=== PATIENT | male | born 1955 | race Caucasian/White ===

== ENCOUNTER 2017-06-26 15:22 | Emergency (ER) | payer BC ==
[~2017-06-26] VITALS: Ht 177.8 cm; Wt 143.7 kg
[~2017-06-26 15:22] MED LIST: DUTA0.5C PO; FEXO1TAB46 PO
[2017-06-26 15:32] VITALS: BP 155/92; PULSE 73; TEMP 36.5; O2SAT 95; Ht 177.8 cm; Wt 143.7 kg
--- NOTE | 2017-06-26 15:41 | EMERGENCY ROOM VISIT NOTE ---
ED Visit Note First contact with patient: 15:34 CHIEF COMPLAINT: Staple removal HPI: This patient returns to the ED today for removal of arianne that were placed 7 days ago on the patient's superior scalp. There has been no swelling, redness, or drainage from the wound. The patient feels like the laceration is healing well. REVIEW OF SYSTEMS: A complete 6 point review of systems was reviewed with the patient with pertinent positives and negatives as per history of present illness. All else were negative. PMH: Seasonal allergies SOCIAL HISTORY: Patient lives locally with family. He denies drug, alcohol, tobacco use. PHYSICAL EXAM: Vital Signs: Reviewed Nurse's notes. There is a stapled wound on the superior scalp with no signs of infection. There is no erythema, swelling, or tenderness. EMERGENCY DEPARTMENT COURSE: 3 arianne were removed from the scalp without any difficulty and there was no separation of the wound edges. I attest that I have personally reviewed the patient's current medication list. Patient was found to have normal blood pressure on screening and does not require follow-up. DIAGNOSIS: Healing laceration and staple removal Current/Historical Medications Scheduled Dutasteride (Avodart), 0.5 MG PO QAM Fexofenadine Hcl (Sirisha), 180 MG PO DAILY Allergies Coded Allergies: Penicillins (Verified Allergy, Intermediate, HIVES, 06/19/17) Sulfa Drugs (Verified Allergy, Intermediate, "SWELLING", 06/19/17) Iodinated Diagnostic Agents (Verified Allergy, Unknown, GI UPSET, 06/19/17) Vital Signs Date Time Temp Pulse Resp B/P (MAP) Pulse Ox O2 Delivery O2 Flow Rate FiO2 06/26/17 15:32 36.5 73 18 155/92 95 Room Air Departure Information Impression Primary Impression: Encounter for removal of arianne Additional Impression: Laceration of scalp Dispostion Home / Self-Care Condition GOOD Referrals Farooq Kapadia M.D. (PCP) Patient Instructions ED Stap Removal No Complication, [facility] Additional Instructions Proper wound care is essential for adequate wound healing and infection prevention. You can shower and clean the wound with soap and water. Do not scour over the wound, pat dry with a towel. Do not submerse the wound (i.e. bathe or dish wash) until the wound has fully healed. You can use an antibiotic ointment with a dressing over the wound for the next 3-4 days. After this time you may leave the wound dry and open to the air. Return to the emergency department for repeat bleeding, increased pain, or any other concerning symptoms. Problem Qualifiers Additional Impression: Laceration of scalp Encounter type: subsequent encounter Qualified Codes: S01.01XD - Laceration without foreign body of scalp, subsequent encounter
== END 2017-06-26 15:54 | disposition home or self-care (01) ==
LOC: C.EDB 15:23 → C.EDD 15:54
DX: S01.01XD Laceration without foreign body of scalp, subsequent encounter (principal); X58.XXXD Exposure to other specified factors, subsequent encounter

== ENCOUNTER → 2017-07-20 | Outpatient (CLI) | payer BC ==
--- NOTE | 2017-07-20 15:47 | DIAGNOSTIC IMAGING REPORT ---
CHEST 2 VIEWS ROUTINE HISTORY: 61 years-old Male LRTI acute lower respiratory tract infection with cough COMPARISON: None available TECHNIQUE: PA and lateral views of the chest FINDINGS: Cardiac silhouette is upper limits of normal. There is no pneumothorax, pleural effusion, focal airspace consolidation or overt pulmonary edema. Bones of the chest appear grossly intact. IMPRESSION: No acute cardiopulmonary process. The above report was generated using voice recognition software. It may contain grammatical, syntax or spelling errors. Electronically signed by: Derek Lozano M.D. 07/20/2017 3:46 PM Dictated Date/Time: 07/20/2017 3:45 PM
== END | disposition home or self-care (01) ==
LOC: C.RADBC 15:21
PROVIDERS: ATTEND Family Medicine
DX: J22 Unspecified acute lower respiratory infection (principal); R05 Cough

== ENCOUNTER 2019-10-10 12:04 | Inpatient (IN) ==
[2019-10-10 12:43] LABS: Basophils # (auto) 0.04 K/uL (0-0.2); Basophils % (auto) 0.5 %; Eosinophils # (auto) 0.14 K/uL (0-0.5); Eosinophils % (auto) 1.8 %; Hematocrit (blood only) 43.4 % (42-52); Hemoglobin 14.9 g/dL (14.0-18.0); Immature Granulocytes # (auto) 0.06 K/uL (0.00-0.02); Immature Granulocytes % (auto) 0.8 %; Lymphocytes # (auto) 1.47 K/uL (1.2-3.4); Lymphocytes % (auto) 19.1 %; Mean Corpuscular Hemoglobin 30.2 pg (25-34); Mean Corpuscular Hgb Conc 34.3 g/dL (32-36); Mean Platelet Volume 9.3 fL (7.4-10.4); Monocytes # (auto) 0.65 K/uL (0.11-0.59); Monocytes % (auto) 8.4 %; Neutrophils # (auto) 5.35 K/uL (1.4-6.5); Neutrophils % (auto) 69.4 %; Platelet Count 231 K/uL (130-400); RDW Coefficient of Variation 13.5 % (11.5-14.5); RDW Standard Deviation 43.9 fL (36.4-46.3); Red Blood Count 4.93 M/uL (4.7-6.1); White Blood Count 7.71 K/uL (4.8-10.8)
[2019-10-10 12:58] LABS: Albumin Level 3.7 gm/dl (3.4-5.0); BUN Creatinine Ratio 17.8 (10-20); Calcium 8.6 mg/dl (8.5-10.1); Creatinine Clr Calc Pharmacy 99.2 ml/min; Est GFR (Non-African American) 71.6
--- NOTE | 2019-10-10 13:02 | XRay Report ---
XR chest 1V portable CLINICAL HISTORY: Chest Pain pain COMPARISON STUDY: No previous studies for comparison. FINDINGS: The bones soft tissues and hemidiaphragms are normal. The cardiomediastinal silhouette is n ormal. The lungs are clear. The pulmonary vasculature is normal. IMPRESSION: Negative chest. ACT 112: Negative or not required by law. The above report was generated using voice recognition software. It may contain grammatical, syntax or spelling errors. Electronically signed by: Mo Keenan M.D. 10/10/2019 1:01 PM
[2019-10-10 13:05] LABS: Albumin Globulin Ratio 1.1 (0.9-2); Bilirubin,Total 0.6 mg/dl (0.2-1); Globulin 3.4 gm/dl (2.5-4.0); Phosphorus 1.9 mg/dl (2.5-4.9); Total Protein 7.1 gm/dl (6.4-8.2); Troponin I 0.065 ng/ml (0-0.045)
[2019-10-10] MEDS ORDERED: POTASSIUM PHOS 3 MMOL/1 ML INFUSION IV STA (13:15)
[2019-10-10] MEDS ORDERED: ASPIRIN CHEW 324 MG PO STA (13:20)
[2019-10-10] MEDS ORDERED: POTASSIUM PHOSPHATE 6 MMOL in 0.9 % SODIUM CHLORIDE 100 ML IV ONE (14:00)
--- NOTE | 2019-10-10 14:08 | History & Physical Report ---
Date of Service October 10, 2019 Assessment & Plan (1) JOHN (dyspnea on exertion): (2) Elevated troponin: - Admit to tele for observation for r/o - Trend cardiac biomarkers, initial trop= 0.065 - EKG reviewed showing inferior lead T wave inversions concerning for inferior infarct, appears to be somewhat acute however his symptoms started 1 week ago. No prior EKG to review. - Check 2 D echo - If negative enzymes can consider a stress test tomorrow morning. Patient reports that he would most likely be able to walk on treadmill, back pain is well controlled at this time, consider dobutamine stress test pending back. - BNP elevated upon admission at 1324, will order lasix x 1 dose now with mild JVD and edema in BLE, strict I/Os, daily weights, follow echo results - CXR is negative - PT/OT consulted - Check lipid panel and A1c with a.m. labs - Heart score of 6 points, risk of MACE of 12-16.6% - Consult cardiology for acute EKG changes, Dr. Maynard (3) MATHEW on CPAP: -Patient plans to have bring CPAP in from home (4) Hypophosphatemia: - 1.9 at time of admission, follow with am labs - Replacement administered in the ER (5) BPH loc w urin obs/LUTS: - Continue Flomax and Avodart (6) Lower back pain: - Continue flexeril 10 mg PO BID prn pain and diclofenac sodium 75 mg PO BID prn pain - PT/OT here, already receiving PT as outpatient 2x/wk (7) Morbid obesity: - BMI of 44.3 - Diet and exercise will need to be encouraged prior to discharge - diet (8) Hyperglycemia: - Glucose elevated at 153 on admission, pt has not eaten anything much today, check A1C with am labs - Heart healthy diet (9) DVT prophylaxis: -heparin subcu CODE STATUS full code Disposition: Patient from home, remain in the hospital overnight for observation, possible discharge tomorrow pending echo, troponins, stress testing History of Present Illness Primary Care Provider: Farooq Kapadia MD This is a 63 yo M with PMHx of morbid obesity with BMI of 44, hypophosphatemia, MATHEW on CPAP, BPH who presents with dyspnea on exertion x1 week and presents with elevated troponin of 0.065 as well as EKG changes involving T wave inversion the inferior leads. Patient notes that his JOHN began approximately 1 week ago and has slightly progressed since. He notes the largest difference is ability to c limb a flight of stairs requires significant amount of energy. He denies any chest pain or pressure. Patient denies any numbness or tingling into the arms or up into the jaw. He reports that he has been struggling with low back pain and has been following with PT as outpatient recently, he has been using cyclobenzaprine 10 mg for back spasm intermittently. He denies any history of tobacco products or smoking, occasional alcohol use. He has never had any cardiac events in his past, nor is on any type of cardiac medication. He does not exercise routinely. The patient mentions that he had a URI about 1 month ago where he required 5-day course of azithromycin, nebulizers, albuterol inhaler, and [id number] medication. He did use his albuterol inhaler this week with the shortness of breath he experienced on exertion however did not help with symptoms. Allergies Allergy/AdvReac Type Severity Reaction Status Date / Time Penicillins Allergy Intermediate HIVES Verified 10/10/19 14:15 Sulfa (Sulfonamide Allergy Intermediate "SWELLING" Verified 10/10/19 14:15 Antibiotics) Iodinated Contrast Media AdvReac Unknown GI UPSET Verified 10/10/19 14:15 Home Medications Home Medications Medication Instructions Recorded Confirmed Type cyclobenzaprine 10 mg PO BID PRN 10/10/19 10/10/19 History diclofenac sodium 75 mg PO BID PRN 10/10/19 10/10/19 History dutasteride [Avodart] 0.5 mg PO QPM 10/10/19 10/10/19 History tamsulosin 0.4 mg PO QPM 10/10/19 10/10/19 History Past Med/Surg History Medical History (Updated 10/10/19 @ 14:55 by Tracie Tracy PA-C) BPH loc w urin obs/LUTS Erectile dysfunction Surgical History No pertinent past surgical history Family History (Updated 10/10/19 @ 15:00 by Tracie Tracy PA-C) Mother Clotting disorder Pulmonary embolism Grandfather (Maternal) Heart disease Hypertension Social History Preferred Language: Faroese Scale Technician Required: No Beliefs That Will Affect Care: None Current Living Situation: Spouse Other Information That Helps Us Care for You: No Feels Safe at Home: Yes Safety Concerns: Feels Safe At This Time Smoking Status: Never smoker Hx Alcohol Use: Yes Alcohol type: beer Hx Substance Use: No Review of Systems Review of Systems: Constitutional: No fever, sweats or chills Eyes: No diplopia, no worsening or blurred vision ENT: normal hearing, no trouble swallowing Respiratory: No cough, sputum, dyspnea at rest. + JOHN as per HPI Cardiovascular: No chest pain, tightness or palpitations Abdomen: No pain, nausea, vomiting, diarrhea, +history of constipation, last BM today Musculoskeletal: + Low back pain and spasm, otherwise no joint pain, calf pain, swelling Neurologic: + Weakness and heaviness of lower legs when having back pain, currently none, no numbness/tingling, or balance problems Psychiatric: No anxiety or depression Skin: No rash or itch Physical Exam Physical Exam: General: awake, alert, no apparent distress, morbidly obese with BMI of 44.3 Head: Normocephalic, atraumatic ENT: PERRL, EOMI, no pharyngeal exudate, mucous membranes moist Chest: Clear to auscultation, on room air, no adventitious breath sounds Cardiac: Regular rate and rhythm, no murmur, + mild JVD, normal peripheral pulses, good capillary refill Abdominal: NABS x 4 quadrants, soft, nondistended, nontender to palpation, no rebound, guarding or tenderness Extremities: Normal inspection, +1 nonpitting peripheral edema, no erythema, calfs nontender to palpation Psych: Normal mood and affect Neuro: AAO x 3, strength intact bilaterally and related 5/5, no motor deficits, speech is clear, no peripheral sensory deficits Skin: no rash or erythema Results & Data Vital Signs (Past 12 Hours) Vital Signs Temp Pulse Pulse Resp BP BP Pulse Ox 10/10/19 13:04 76 16 180/110 H 94 10/10/19 12:24 93 10/10/19 12:20 93 10/10/19 12:07 36.4 C L 72 20 167/111 H 95 Diagnostic Findings XR chest 1V portable CLINICAL HISTORY: Chest Pain pain COMPARISON STUDY: No previous studies for comparison. FINDINGS: The bones soft tissues and hemidiaphragms are normal. The cardiomediastinal silhouette is normal. The lungs are clear. The pulmonary vasculature is normal. IMPRESSION: Negative chest. ACT 112: Negative or not required by law. The above report was generated using voice recognition software. It may contain grammatical, syntax or spelling errors. Electronically signed by: Mo Keenan M.D. 10/10/2019 1:01 PM ECG Additional Comments: 10-OCT-2019 12:20:18 [facility]-EDSTAT ROUTINE RETRIEVAL Normal sinus rhythm Inferior infarct , age undetermined Abnormal ECG No previous ECGs available 25mm/s 10mm/mV 150Hz 9.0.9 12SL 241 MARKIE: 16 Referred by: REFERRED SELF Unconfirmed Vent. rate 81 BPM MN interval 144 ms QRS duration 84 ms QT/QTc 404/469 ms P-R-T axes 63 16 -12 Code Status & VTE Plan Code Status Code-discussed with patient and at bedside VTE Prophylaxis Plan VTE Prophylaxis will be ordered: No Supervising Physician Co-Signing Physician Notes I have seen and examined pt with Amalia Tracy PA-C and agree with her assessment and plan. PG Care Time/CCT Total # of Minutes Spent Total Time Spent with Patient: Total time spent is greater than 50% in coordination of care (as documented) at patient's floor/unit and/or counseling patient: Coding Level of Care Code 82578 OBS Care - Level 3 Diagnoses JOHN (dyspnea on exertion) R06.09 Elevated troponin R79.89 MATHEW on CPAP G47.33; Z99.89 Hypophosphatemia E83.39 BPH loc w urin obs/LUTS N40.1 Lower back pain M54.5 Morbid obesity E66.01 Hyperglycemia R73.9 DVT prophylaxis Z29.9
[2019-10-10] MEDS ORDERED: DICLOFENAC SODIUM 75 MG TABCR PO PRN (14:46)
[2019-10-10] MEDS ORDERED: CYCLOBENZAPRINE HCL 10 MG TAB PO PRN (15:20)
[2019-10-10] MEDS ORDERED: FUROSEMIDE 40 MG/4 ML VIAL IV STA (15:50)
[2019-10-10] MEDS ORDERED: ONDANSETRON INJ 2 MG/ML 2 ML VIAL IV PRN (15:50)
[2019-10-10] MEDS ORDERED: ACETAMINOPHEN 325 MG TAB PO PRN (15:50)
[2019-10-10] MEDS ORDERED: FUROSEMIDE 40 MG in SYRINGE 0 ML IV ONE (16:15)
[2019-10-10] MEDS: AVODART-ORDER AWAITING ACTION SCH (17:00)
--- NOTE | 2019-10-10 19:14 | Electrocardiogram Report ---
Test Reason : Blood Pressure : / mmHG Vent. Rate : 081 BPM Atrial Rate : 081 BPM P-R Int : 144 ms QRS Dur : 084 ms QT Int : 404 ms P-R-T Axes : 063 016 -12 degrees QTc Int : 469 ms Normal sinus rhythm possible Inferior infarct , age undetermined Abnormal ECG No previous ECGs available Confirmed by Noah Maynard ([id number]) on 10/10/2019 7:14:36 PM Referred By: REFERRED SELF Confirmed By:Jose Francisco Maynard
--- NOTE | 2019-10-10 20:02 | Emergency Department Note ---
Entered by Sahra Robbins acting as a scribe for Jamarcus Malloy MD History of Present Illness General Chief complaint: Shortness of Breath/Dyspnea Stated complaint: sob, ref by doctor for ab-normal ekg Time Seen by Provider: 10/10/19 12:23 Source: patient History of Present Illness Provider complaint: Shortness of Breath/Dyspnea Onset (ago): week(s) 1 Location: chest Maximum Pain Intensity: 1 Relieved By: + none Exacerbated By: + movement Associated symptoms: no chest pain, no cough and no nausea/vomiting The patient is a 63 year old male who presents to the Emergency Room with complaints of shortness of breath/dyspnea that began 1 week ago. The patient notes that he was referred to the ED by his doctor because he felt that the patient's EKG was abnormal. The patient states that his symptoms are exacerbated by movement but not relieved by anything specific. The patient denies experiencing any chest pain, cough, or nausea/vomiting. The patient notes that h linda uses a CPAP at night but is able to lay flat at night. The patient denies any history of heart attacks or blood clots. Home Medications Home Medications Medication Instructions Recorded Confirmed Type cyclobenzaprine 10 mg PO BID PRN 10/10/19 10/10/19 History diclofenac sodium 75 mg PO BID PRN 10/10/19 10/10/19 History dutasteride [Avodart] 0.5 mg PO QPM 10/10/19 10/10/19 History tamsulosin 0.4 mg PO QPM 10/10/19 10/10/19 History Allergies Allergy/AdvReac Type Severity Reaction Status Date / Time Penicillins Allergy Intermediate HIVES Verified 10/10/19 14:15 Sulfa (Sulfonamide Allergy Intermediate "SWELLING" Verified 10/10/19 14:15 Antibiotics) Iodinated Contrast Media AdvReac Unknown GI UPSET Verified 10/10/19 14:15 Past Med/Surg History Medical History BPH loc w urin obs/LUTS Erectile dysfunction Surgical History No pertinent past surgical history Family History Mother Clotting disorder Pulmonary embolism Grandfather (Maternal) Heart disease Hypertension Social History Preferred Language: [place] Senior Inspector Required: No Beliefs That Will Affect Care: None Current Living Situation: Spouse Other Information That Helps Us Care for You: No Feels Safe at Home: Yes Safety Concerns: Feels Safe At This Time Smoking Status: Never smoker Hx Alcohol Use: Yes Alcohol type: beer Hx Substance Use: No Review of Systems See HPI for pertinent positives & negatives. and A total of 10 systems reviewed and were otherwise negative Physical Exam Vital Signs Vital Signs - 24 hr 10/10/19 12:07 10/10/19 12:20 10/10/19 12:24 Temperature 36.4 C L Temperature Source Oral Pulse Rate 72 Pulse Rate [Apical] Pulse Rate from SpO2 Sensor Respiratory Rate 20 Respiratory Effort / Characteristics Non-Labored Spontaneous Short of Breath SOB on Exertion Respiratory Depth Normal Blood Pressure 167/111 H Blood Pressure [Right Arm] Blood Pressure Mean 129 Blood Pressure Mean [Right Arm] Pulse Oximetry 95 93 93 Oxygen Delivery Method Room Air Room Air Room Air Sepsis Recent Fever Within 48 Hours No Sepsis Action Taken by Nursing No Action Required 10/10/19 12:31 10/10/19 13:01 10/10/19 13:04 Temperature Temperature Source Pulse Rate 85 78 Pulse Rate [Apical] 76 Pulse Rate from SpO2 Sensor 85 79 Respiratory Rate 32 H 23 16 Respiratory Effort / Characteristics Respiratory Depth Blood Pressure 158/119 H 180/110 H Blood Pressure [Right Arm] 180/110 H Blood Pressure Mean 125 122 Blood Pressure Mean [Right Arm] 133 Pulse Oximetry 97 95 94 Oxygen Delivery Method Room Air Sepsis Recent Fever Within 48 Hours Sepsis Action Taken by Nursing 10/10/19 14:00 Temperature Temperature Source Pulse Rate 71 Pulse Rate [Apical] Pulse Rate from SpO2 Sensor 71 Respiratory Rate 38 H Respiratory Effort / Characteristics Respiratory Depth Blood Pressure 141/100 H Blood Pressure [Right Arm] Blood Pressure Mean 118 Blood Pressure Mean [Right Arm] Pulse Oximetry 99 Oxygen Delivery Method Sepsis Recent Fever Within 48 Hours Sepsis Action Taken by Nursing GENERAL: Awake, alert, relatively well-appearing, in no distress HENT: Normocephalic, atraumatic. Oropharynx with dry mucous membranes and otherwise unremarkable. EYES: Normal conjunctiva. Sclera non-icteric. NECK: Supple. No nuchal rigidity. FROM. No JVD. RESPIRATORY: CTAB. CARDIAC: Regular rate, normal rhythm. Extremities warm and well perfused. Pulses equal. ABDOMEN: Soft, non-distended. No tenderness to palpation. No rebound or guarding. No masses. RECTAL: Deferred. MUSCULOSKELETAL: Chest examination reveals no tenderness. The back is symmetrical on inspection without obvious abnormality. There is no CVA tenderness to palpation. No joint edema. LOWER EXTREMITIES: Calves are equal size bilaterally and non-tender. Scant bilateral lower extremity edema. No discoloration. NEURO: Normal sensorium. No sensory or motor deficits noted. SKIN: No rash or jaundice noted. Course Course 1233: Past medical records reviewed. The patient was evaluated in room B11B. A complete history and physical exam was performed. 1400: I spoke with Dr. Dao- Hospitalist about the patient's case and she will accept the patient for further evaluation. Administered Medications Heparin Sodium (Porcine) (Heparin Sodium (Porcine)) 5,000 units SQ Q8 IFRAH Stop: 11/09/19 21:59 Last Admin: 10/10/19 20:35 Dose: 5,000 units Documented by: [id number] Cosigned by: [id number] Miscellaneous (Order Awaiting Action) 1 ea N/A QS IFRAH Stop: 11/09/19 15:59 Last Admin: 10/11/19 00:07 Dose: Not Given Documented by: [id number] Admin: 10/10/19 17:00 Dose: Not Given Documented by: [id number] Tamsulosin HCl (Flomax) 0.4 mg PO QPM IFRAH Stop: 11/09/19 20:59 Last Admin: 10/10/19 20:32 Dose: 0.4 mg Documented by: [id number] Discontinued Medications Aspirin (Aspirin) 324 mg PO NOW STA Stop: 10/10/19 13:21 Last Admin: 10/10/19 14:03 Dose: 324 mg Documented by: [id number] Potassium Phosphate 6 mmol/ (Sodium Chloride) 102 mls @ 88 mls/hr IV ONE ONE Stop: 10/10/19 15:09 Last Infusion: 10/10/19 15:13 Dose: 0 mls/hr Documented by: [id number] Admin: 10/10/19 14:03 Dose: 88 mls/hr Documented by: [id number] Furosemide 40 mg/ Syringe 4 mls @ 4 mls/min IV NOW ONE Stop: 02/27/20 16:16 Last Admin: 10/10/19 17:01 Dose: 4 mls/min Documented by: [id number] Pneumococcal Polyvalent Vaccine (Pneumovax-23) 25 mcg IM .ONCE ONE Stop: 10/10/19 21:01 Last Admin: 10/10/19 20:33 Dose: 25 mcg Documented by: [id number] Potassium Phosphate (Potassium Phosphate Replace) 6 mmol IV NOW STA Stop: 10/10/19 13:16 Last Admin: 10/10/19 13:44 Dose: Not Given Documented by: [id number] Medical Decision Making Differential Diagnosis Differential diagnosis: Etiologies such as infections, reactive airway disease, COPD, pneumonia, pleural effusion, pulmonary edema, ARDS, pneumothorax, CHF, cardiac ischemia, cardiac tamponade, dysrhythmia, anemia, pulmonary embolism, musculoskeletal, gastrointestinal process, as well as others were entertained. Medical Records Attestation: I reviewed the patient's medical records. Home Medications Current Medication List: was personally reviewed by me Laboratory Data Attestation: I reviewed the patient's lab results. Result diagrams: 10/10/19 12:27 10/10/19 12:27 Lab Results 10/10/19 10/10/19 10/10/19 Range/Units 12:27 12:27 12:27 WBC 7.71 (4.8-10.8) K/uL RBC 4.93 (4.7-6.1) M/uL Hgb 14.9 (14.0-18.0) g/dL Hct 43.4 (42-52) % MCV 88.0 (80-100) fL MCH 30.2 (25-34) pg MCHC 34.3 (32-36) g/dL RDW Std Deviation 43.9 (36.4-46.3) fL RDW Coeff of Susi 13.5 (11.5-14.5) % Plt Count 231 (130-400) K/uL MPV 9.3 (7.4-10.4) fL Immature Gran % (Auto) 0.8 % Neut % (Auto) 69.4 % Lymph % (Auto) 19.1 % [place] % (Auto) 8.4 % Eos % (Auto) 1.8 % Baso % (Auto) 0.5 % Immature Gran # (Auto) 0.06 H (0.00-0.02) K/uL Neut # (Auto) 5.35 (1.4-6.5) K/uL Lymph # (Auto) 1.47 (1.2-3.4) K/uL [place] # (Auto) 0.65 H (0.11-0.59) K/uL Eos # (Auto) 0.14 (0-0.5) K/uL Baso # (Auto) 0.04 (0-0.2) K/uL Sodium 139 (136-145) mmol/L Potassium 4.0 (3.5-5.1) mmol/L Chloride 109 H (98-107) mmol/L Carbon Dioxide 21 (21-32) mmol/L Anion Gap 9.0 (3-11) BUN 19 H (7-18) mg/dl Creatinine 1.08 (0.6-1.4) mg/dl Est Cr Clr Drug Dosing 99.2 ml/min Est GFR ( Amer) 83.0 Est GFR (Non-Af Amer) 71.6 BUN/Creatinine Ratio 17.8 (10-20) Glucose 153 H (70-99) mg/dl Calcium 8.6 (8.5-10.1) mg/dl Phosphorus 1.9 L (2.5-4.9) mg/dl Magnesium 2.0 (1.8-2.4) mg/dl Total Bilirubin 0.6 (0.2-1) mg/dl AST 36 (15-37) U/L ALT 78 (12-78) U/L Alkaline Phosphatase 67 (45-117) U/L Troponin I 0.065 H* (0-0.045) ng/ml NT-Pro-B Natriuret Pep 1324 H (0-900) pg/ml Total Protein 7.1 (6.4-8.2) gm/dl Albumin 3.7 (3.4-5.0) gm/dl Globulin 3.4 (2.5-4.0) gm/dl Albumin/Globulin Ratio 1.1 (0.9-2) Lipase 49 L (73-393) U/L Imaging Data Radiologist's Impression: Radiology results as stated below per my review and the radiologist's interpretation: XR chest 1V portable CLINICAL HISTORY: Chest Pain pain COMPARISON STUDY: No previous studies for comparison. FINDINGS: The bones soft tissues and hemidiaphragms are normal. The cardiomediastinal silhouette is normal. The lungs are clear. The pulmonary vasculature is normal. IMPRESSION: Negative chest. ACT 112: Negative or not required by law. The above report was generated using voice recognition software. It may contain grammatical, syntax or spelling errors. Electronically signed by: Mo Keenan M.D. 10/10/2019 1:01 PM ECG Data Attestation: I personally reviewed and interpreted this ECG as follows: Indication: + SOB/dyspnea Rate (beats per minute): 81 Rhythm: + normal sinus ECG Intervals/blocks: + Normal QRS (84) and + Normal QT-c (469) ECG Otter: + Normal ECG ST segments: + Nonspecific ST abnormalities (Q wave); no ST depression and no ST elevation ECG Findings: no PACs and no PVCs Blood Pressure Blood Pressure Findings: Elevated blood pressure Blood Pressure Disposition: further management by hospitalist CHRIS Narrative The patient is a pleasant 63-year-old gentleman with pmhx of MATHEW on CPAP who presents emergency department for evaluation of new onset dyspnea on exertion over the past week which he feels occurred somewhat abruptly per HPI. The patient denies any chest pain associated with the symptoms but does acknowledge that he gets short of breath with the slightest bit of exertion including walking around in his home and upstairs. He reports this has never happened before. He does report being diagnosed with a bronchitis in August that did resolve and he was doing well prior to the onset of his current symptoms. However the patient is in no acute distress, afebrile with BP 180s/110s and otherwise stable vital signs. EKG demonstrates sinus rhythm with nonspecific ST and T wave abnormalities though no overt ST elevation or depression. Chest x- ray negative for acute process. WBC, H/H and platelets within normal limits. Chemistry without acidosis. Phosphorus 1.9 with repletion provided. Troponin elevated at 0.065. BNP 1300 without prior values for comparison. Given the patient's elevated troponin in the setting of his nonspecific ST and T wave abnormalities on EKG symptoms potentially related to cardiac event earlier this week. However given the patient appears comfortable at this time unlikely to have active ACS. Patient was given aspirin. Patient is agreeable for plan for admission for further cardiac rule out. Case was discussed with Tracie Merrill [facility] who will evaluate the patient for admission. Impression & Plan JOHN (dyspnea on exertion), Elevated troponin, Hypophosphatemia, MATHEW on CPAP Discharge Plan Visit Data *Final* Discharge Date/Time: 10/10/19 15:03 Chief Complaint: Shortness of Breath/Dyspnea Stated Complaint: sob, ref by doctor for ab-normal ekg ED Provider: Jamarcus Malloy Discharge Problem: JOHN (dyspnea on exertion), Elevated troponin, Hypophosphatemia, MATHEW on CPAP Patient Disposition: Admitted As Inpatient Discharge Instructions Interventions: ED Discharge Assessment Last Done: 10/10/19 15:03 The scribe's documentation has been prepared under my direction and personally reviewed by me in its entirety. I confirm that the note above accurately reflects all work, treatment, procedures, and medical decision making performed by me.
[2019-10-10] MEDS: TAMSULOSIN HCL 0.4 MG CAP PO SCH (20:32)
[2019-10-10] MEDS: HEPARIN SOD 5,000 UNIT/0.5 ML VIAL SQ SCH (20:35)
[2019-10-10] MEDS ORDERED: PNEUMOCOCCAL POLYSACCHARIDES 25 MCG/0.5 ML VIAL/SYR IM ONE (21:00)
[2019-10-10] MEDS ORDERED: INFLUENZA ADMINISTRATION CHARGE ONE (21:00)
[2019-10-10] MEDS ORDERED: PNEUMOCOCCAL ADMINISTRATION CHARGE ONE (21:00)
[2019-10-10] MEDS ORDERED: INFLUENZA VACCINE HIGH DOSE 65+ 0.5 ML SYR IM ONE (21:00)
[2019-10-11] MEDS: AVODART-ORDER AWAITING ACTION SCH ×3 (00:07→16:19)
[2019-10-11 04:11] LABS: Hematocrit (blood only) 44.5 % (42-52); Mean Corpuscular Hemoglobin 29.8 pg (25-34); Mean Corpuscular Hgb Conc 33.7 g/dL (32-36); Mean Corpuscular Volume 88.3 fL (80-100); Mean Platelet Volume 9.4 fL (7.4-10.4); Platelet Count 230 K/uL (130-400); RDW Coefficient of Variation 13.5 % (11.5-14.5); RDW Standard Deviation 43.6 fL (36.4-46.3); Red Blood Count 5.04 M/uL (4.7-6.1); White Blood Count 9.64 K/uL (4.8-10.8)
[2019-10-11 04:29] LABS: Albumin Level 3.5 gm/dl (3.4-5.0); BUN Creatinine Ratio 15.4 (10-20); Calcium 8.4 mg/dl (8.5-10.1); Creatinine Clr Calc Pharmacy 94.6 ml/min; Est GFR (African American) 78.6; Est GFR (Non-African American) 67.8; Potassium 3.7 mmol/L (3.5-5.1)
[2019-10-11 04:44] LABS: Bilirubin,Total 0.8 mg/dl (0.2-1); Globulin 3.4 gm/dl (2.5-4.0); Phosphorus 3.1 mg/dl (2.5-4.9); Total Protein 6.9 gm/dl (6.4-8.2); Troponin I 0.054 ng/ml (0-0.045)
[2019-10-11 06:06] LABS: Estimated Average Glucose 146 mg/dl; Hemoglobin A1C 6.7 % (4.5-5.6)
[2019-10-11] MEDS: HEPARIN SOD 5,000 UNIT/0.5 ML VIAL SQ SCH (06:12)
[2019-10-11] MEDS ORDERED: PERFLUTREN LIPID MICROSPHERE (DEFINITY) IV ONE (08:43)
--- NOTE | 2019-10-11 11:15 | XCELERA ---
[id number] \\[id number]
[2019-10-11] MEDS ORDERED: methylPREDNISolone 125 MG in SYRINGE 0 ML IV STA (11:46)
[2019-10-11] MEDS ORDERED: DiphenhydrAMINE HCL 50 MG/ML VIAL IV STA (11:46)
--- NOTE | 2019-10-11 12:41 | Cardiology Consultation ---
Date of Consultation October 11, 2019 Assessment & Plan (1) JOHN (dyspnea on exertion): Certainly his dyspnea on exertion could be related to coronary insufficiency or angina. However, he did not endorse symptoms of significant chest discomfort which I think would be more common in his demographic. His symptoms also appear to start fairly suddenly. This would suggest an acute coronary syndrome of sorts. His symptoms appear to be primarily exertional and not at rest which speaks against an acute coronary syndrome. He does have a mildly elevated N terminal proBNP. However, his lung examination was fairly benign and his x-ray was also normal. He has preserved LV systolic function on echocardiography making the likelihood of severe and acute pulmonary edema low. He does have some mildly elevated pulmonary pressures based on his echocardiogram. No severe RV dilation or dysfunction. He is known to have obstructive sleep apnea which could explain some of these findings. Given his obesity, history of calf discomfort and sudden change in his breathing, pulmonary embolus should be considered. There was no D-dimer drawn in the emergency room. This point I think we will proceed with chest imaging. In the absence of a etiology for his symptoms on CT scanning, we could consider coronary angiography given his risk factors for coronary disease. (2) Elevated troponin: Very minimally elevated. Not generally consistent with an acute coronary syndrome less it was quite remote. Possibly related to some form of ventricular strain. Given the exertional nature of his symptoms and mildly elevated biomarkers, he would seem reasonable to consider some provocative testing or even coronary angiography in the absence of another defined etiology for his symptoms. History of Present Illness Reason for Consultation: Dyspnea Requesting Physician: Carlito Attending Physician: Geovanna Esteban MD History of Present Illness The patient is a 63-year-old gentleman without a known history of cardiac disease who has been experiencing dyspnea on exertion. Patient states that fairly suddenly 6 days ago he began experience dyspnea with activity. This was fairly severe in nature and he states that is difficult for him to walk across the room without becoming severely short of breath. He has difficulty at ascending stairs he is very winded at the top. He cannot carry on a conversation after mild exertion. Curiously, he does not have symptoms of chest discomfort. Only mild sensation of fullness in the chest but on several occasions he denied active chest pain or chest pressure associated with this activity. He denies orthopnea but does use CPAP at nighttime for known sleep apnea. He has some mild dizziness lightheadedness associated with exertion and dyspnea. No syncope. No sense of palpitation. In general he is a sedentary individual, but prior to last Monday he would not have significant limitations with normal activity. Allergies Allergy/AdvReac Type Severity Reaction Status Date / Time Penicillins Allergy Intermediate HIVES Verified 10/10/19 14:15 Sulfa (Sulfonamide Allergy Intermediate "SWELLING" Verified 10/10/19 14:15 Antibiotics) Iodinated Contrast Media AdvReac Unknown GI UPSET Verified 10/10/19 14:15 Home Medications Home Medications Medication Instructions Recorded Confirmed Type cyclobenzaprine 10 mg PO BID PRN 10/10/19 10/10/19 History diclofenac sodium 75 mg PO BID PRN 10/10/19 10/10/19 History dutasteride [Avodart] 0.5 mg PO QPM 10/10/19 10/10/19 History tamsulosin 0.4 mg PO QPM 10/10/19 10/10/19 History Patient History Medical History BPH loc w urin obs/LUTS Erectile dysfunction Surgical History No pertinent past surgical history Family History Mother Clotting disorder Pulmonary embolism Grandfather (Maternal) Heart disease Hypertension Social History Preferred Language: Georgian Tv Production Assistant Required: No Beliefs That Will Affect Care: None Current Living Situation: Spouse Other Information That Helps Us Care for You: No Feels Safe at Home: Yes Safety Concerns: Feels Safe At This Time Smoking Status: Never smoker Hx Alcohol Use: Yes Alcohol type: beer Hx Substance Use: No Review of Systems Review of Systems: All systems reviewed & are unremarkable except as noted in HPI & below No recent fevers or chills. He has not noticed any significant swelling in his lower extremities. Did report to other providers some left calf discomfort a few weeks ago. This appears to have resolved. No leg pain currently. No pleuritic chest pain. No positional chest pain. Physical Exam Physical Exam: The patient is alert and oriented. Mood and affect appeared normal. He answered all questions appropriately. Obese HEENT: Pupils are equal and reactive to light and accommodation. Extraocular movements are intact. The sclerae are anicteric. Neuro: Cranial nerves intact Neck: Patient's neck is supple. He has palpable carotid pulses bilaterally without bruits on auscultation. There is no evidence of jugular venous distention. The thyroid is not enlarged. Lungs: Clear to auscultation bilaterally. He has good air movement without use of accessory muscles. No rales wheezes or rhonchi. Cardiac: Heart demonstrates a regular rate and rhythm. Normal S1 and S2. No murmurs on examination. Pulses: The patient has palpable radial pulses bilaterally that are equal in intensity Extremities: There was no evidence of hypoperfusion. There is no cyanosis or clubbing. Mild lower extremity edema which appears symmetrical. Skin: I did not appreciate any rashes on examination today. Results & Data ([facility]) Vital Signs (Past 12 Hours) Vital Signs Temp Pulse Resp BP Pulse Ox 10/11/19 11:54 36.3 C L 81 18 148/95 H 92 10/11/19 07:17 36.3 C L 81 20 155/88 H 90 10/11/19 04:14 36.6 C 82 20 150/91 H 94 Laboratory Results Abnormal Lab Results 10/10/19 10/10/19 10/10/19 12:27 12:27 12:27 WBC 7.71 RBC 4.93 Hgb 14.9 Hct 43.4 MCV 88.0 MCH 30.2 MCHC 34.3 RDW Std Deviation 43.9 RDW Coeff of Susi 13.5 Plt Count 231 MPV 9.3 Immature Gran % (Auto) 0.8 Neut % (Auto) 69.4 Lymph % (Auto) 19.1 [place] % (Auto) 8.4 Eos % (Auto) 1.8 Baso % (Auto) 0.5 Immature Gran # (Auto) 0.06 H Neut # (Auto) 5.35 Lymph # (Auto) 1.47 [place] # (Auto) 0.65 H Eos # (Auto) 0.14 Baso # (Auto) 0.04 Sodium 139 Potassium 4.0 Chloride 109 H Carbon Dioxide 21 Anion Gap 9.0 BUN 19 H Creatinine 1.08 Est Cr Clr Drug Dosing 99.2 Est GFR ( Amer) 83.0 Est GFR (Non-Af Amer) 71.6 BUN/Creatinine Ratio 17.8 Glucose 153 H Estimat Average Glucose Hemoglobin A1c Calcium 8.6 Phosphorus 1.9 L Magnesium 2.0 Total Bilirubin 0.6 AST 36 ALT 78 Alkaline Phosphatase 67 Troponin I 0.065 H* NT-Pro-B Natriuret Pep 1324 H Total Protein 7.1 Albumin 3.7 Globulin 3.4 Albumin/Globulin Ratio 1.1 Triglycerides Cholesterol LDL Cholesterol, Calc VLDL Cholesterol, Calc HDL Cholesterol Cholesterol/HDL Ratio Lipase 49 L 10/10/19 10/11/19 10/11/19 20:01 03:56 03:56 WBC 9.64 RBC 5.04 Hgb 15.0 Hct 44.5 MCV 88.3 MCH 29.8 MCHC 33.7 RDW Std Deviation 43.6 RDW Coeff of Susi 13.5 Plt Count 230 MPV 9.4 Immature Gran % (Auto) Neut % (Auto) Lymph % (Auto) [place] % (Auto) Eos % (Auto) Baso % (Auto) Immature Gran # (Auto) Neut # (Auto) Lymph # (Auto) [place] # (Auto) Eos # (Auto) Baso # (Auto) Sodium 139 Potassium 3.7 Chloride 107 Carbon Dioxide 26 Anion Gap 6.0 BUN 17 Creatinine 1.13 Est Cr Clr Drug Dosing 94.6 Est GFR ( Amer) 78.6 Est GFR (Non-Af Amer) 67.8 BUN/Creatinine Ratio 15.4 Glucose 141 H Estimat Average Glucose Hemoglobin A1c Calcium 8.4 L Phosphorus 3.1 D Magnesium Total Bilirubin 0.8 AST 34 ALT 75 Alkaline Phosphatase 65 Troponin I 0.076 H* 0.054 H* NT-Pro-B Natriuret Pep 1528 H Total Protein 6.9 Albumin 3.5 Globulin 3.4 Albumin/Globulin Ratio 1.0 Triglycerides 223 H Cholesterol 163 LDL Cholesterol, Calc 89 VLDL Cholesterol, Calc 45 HDL Cholesterol 29 Cholesterol/HDL Ratio 6 Lipase 10/11/19 03:56 WBC RBC Hgb Hct MCV MCH MCHC RDW Std Deviation RDW Coeff of Susi Plt Count MPV Immature Gran % (Auto) Neut % (Auto) Lymph % (Auto) [place] % (Auto) Eos % (Auto) Baso % (Auto) Immature Gran # (Auto) Neut # (Auto) Lymph # (Auto) [place] # (Auto) Eos # (Auto) Baso # (Auto) Sodium Potassium Chloride Carbon Dioxide Anion Gap BUN Creatinine Est Cr Clr Drug Dosing Est GFR ( Amer) Est GFR (Non-Af Amer) BUN/Creatinine Ratio Glucose Estimat Average Glucose 146 Hemoglobin A1c 6.7 H Calcium Phosphorus Magnesium Total Bilirubin AST ALT Alkaline Phosphatase Troponin I NT-Pro-B Natriuret Pep Total Protein Albumin Globulin Albumin/Globulin Ratio Triglycerides Cholesterol LDL Cholesterol, Calc VLDL Cholesterol, Calc HDL Cholesterol Cholesterol/HDL Ratio Lipase Diagnostic Findings Obtained at the time of admission did not reveal any acute cardiopulmonary process Echocardiogram obtained today revealed preserved RV and LV function. Stage I diastolic dysfunction. Mildly dilated right atrium. Elevated pulmonary pressur es. ECG Additional Comments: EKG obtained the time of admission revealed normal sinus rhythm. Possible old inferior myocardial infarction. No acute ST or T-wave changes. PG Care Time/CCT Total # of Minutes Spent Total Time Spent with Patient: Total time spent is greater than 50% in coordination of care (as documented) at patient's floor/unit and/or counseling patient: Coding Level of Care Code 26665 Initial Inpt Care Lvl 3 Diagnoses JOHN (dyspnea on exertion) R06.09 Elevated troponin R79.89
[2019-10-11] MEDS ORDERED: OPTIRAY 320 125ml IV PRN (13:01)
--- NOTE | 2019-10-11 13:07 | CT Scan Report ---
CT ANGIOGRAM OF THE CHEST CLINICAL HISTORY: Shortness of breath. Possible pulmonary embolism. Atypical chest pain. COMPARISON STUDY: Chest x-ray dated 10/10/2019 TECHNIQUE: Following the IV administration of 120 mL of Optiray-320, CT angiogram of the thorax was p erformed from the thoracic inlet to the lung bases utilizing the pulmonary embolus protocol. Images a re reviewed in the axial, sagittal, and coronal planes. IV contrast was administered without complica tion. MIP imaging was performed. A dose lowering technique was utilized adhering to the principles o f ALARA. CT DOSE: 571.96 mGycm FINDINGS: No pathologically enlarged axillary mediastinal or hilar lymph nodes were visualized. There was no evidence of thoracic aortic dilatation. There are bilateral lower lobe pulmonary artery filling defects indicative of acute pulmonary embolis m. There are right middle lobe, and bilateral upper lobe pulmonary artery filling defects indicative of acute pulmonary embolism. There is slight flattening of the interventricular septum suggesting rig ht ventricular strain No pleural effusions are visualized. Parenchymal evaluation is somewhat limited due to respiratory motion artifact. There is no focal pulm onary consolidation. IMPRESSION: 1. Moderately extensive bilateral pulmonary embolism with findings suggesting right ventricular strai n. ACT 112: Negative or not required by law. Electronically signed by: Cristofer Meneses M.D. 10/11/2019 1:06 PM
[2019-10-11] MEDS ORDERED: GLUCAGON FOR INJ 1 MG VIAL SQ PRN (13:39)
[2019-10-11] MEDS ORDERED: GLUCOSE 40% GEL 15 GM TUBE PO PRN (13:39)
[2019-10-11] MEDS ORDERED: GLUCOSE 10 TABS/TUBE PO PRN (13:39)
[2019-10-11] MEDS ORDERED: CARBOHYDRATES FOR HYPOGLYCEMIA PO PRN (13:39)
[2019-10-11] MEDS ORDERED: DEXTROSE 50% 50 ML SYRINGE IV PRN (13:39)
[2019-10-11] MEDS ORDERED: HEPARIN IV BOLUS 8,000 UNITS in SYRINGE 0 ML IV ONE (14:30)
[2019-10-11] MEDS: HEPARIN SODIUM/DEXTROSE 25,000 UNITS/500 ML BAG IV SCH (14:34)
[2019-10-11] MEDS: INSULIN ASPART 100 UNITS/ML 3 ML PEN SC SCH ×2 (17:39→20:34)
--- NOTE | 2019-10-11 20:01 | Hospitalist Progress Note ---
Date of Service October 11, 2019 Assessment & Plan (1) Pulmonary emboli: Presented with 1 week of acute onset of SOB, dyspnea with minimal exertion after having left calf pain x 1 week before that. Had mildly positive troponin, nonspecific TW changes on ECG, mild respiratory insufficiency, tachypnea and tachycardia. Premedicated with IV Solu Medrol and Benadryl and then obtained CTA Chest which showed bilat PEs with some right heart strain. ECHO with mildly elevated RVSP 40-50 BPs stable to high -start heparin gtt with bolus, dc SQ heparin -check Venous Doppler bilat LEs given left calf pain and bilat edema -will pinon check Xarelto and if affordable, will start this tomorrow after discussion with pt-he does not want to do Coumadin. -likely PE provoked by long car rides frequently and sedentary lifestyle; does have +FH of DVT in Mom; no recent surgery and is up to date on colon cancer screening, no other signs/symptoms of CA -recommend 3-6 months of therapy with Xarelto -not requiring O2 -will ambulate him tomorrow to see how he's doing from a symptomatic standpoint with exertion (2) JOHN (dyspnea on exertion): as above, secondary to PEs (3) Elevated troponin: secondary to PE no need for cardiac cath or stress ECHO w/o WMAs Appreciate Cardio consult (4) Diabetes mellitus: Noted to have hyperglycemia on arrival HgbA1C here is in diabetes range at 6.7% Seen by CDE -after IV steroids, glucose in the 200s -started SSI with Novolog -follow glucose checks -recommend starting metformin on discharge (48 hours after IV contrast) -will need close outpt follow up. (5) MATHEW on CPAP: -continue CPAP from home (6) Hypophosphatemia: - 1.9 at time of admission, replaced in ER and now resolved (7) BPH loc w urin obs/LUTS: - Continue Flomax -we don't have Avodart here but he can go without it for a few days (8) Lower back pain: - Continue flexeril 10 mg PO BID prn pain and will dc diclofenac as will avoid NSAIDs while on anticoagulation - PT/OT here, already receiving PT as outpatient 2x/wk (9) Morbid obesity: - BMI of 44.3 - Diet and exercise will need to be encouraged prior to discharge - diet (10) DVT prophylaxis: -heparin gtt CODE STATUS full code Disposition: Patient from home, continued stay for heparin gtt, treatment of acute bilat PEs, likely dc to home tomorrow Admission and Anticipated Discharge Date Admission Date: October 10, 2019 Anticipated date of discharge: 10/12/19 Subjective Pt remains SOB even somewhat at rest. He reports maybe an occasional achiness in his left chest. Upon further questioning reports he did have left calf pain that was fairly severe in nature about 2 weeks ago. It was so painful that he states "I almost collapsed when I tried to bear weight on it." He attributed this calf pain to radiation from left lower back pain he also had. He was seen by his PCP and prescribed flexeril and diclofenac for pain. His SOB came on fairly suddenly about one week ago and has not been able to e xert himself much at all. 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 Otherwise he is very sedentary. Denies any h/o bleeding, no weight loss or night sweats, no cough, no abd pain or nausea, no blood in stool or vomiting, no blood in urine. He had a colonoscopy 2-3 years ago that had some polyps but none high risk. I discussed his case with the Claims Examiner Tele with NSR, ST rates 80s-120s Review of Systems Review of Systems: All systems reviewed & are unremarkable except as noted in HPI & below Physical Exam Constitutional: WD/WN, vitals as above + obese Eyes: + anicteric sclerae ENMT: external ear and nose normal, oropharynx normal Neck: trachea midline, no thyromegaly Respiratory: normal respiratory effort, lungs clear to auscultation Cardiovascular: Rate/Rhythm: regular rate and regular rhythm Extremities: + edema (bilat LEs with trace pitting edema to knees); no calf tenderness Chest (Breasts): Chest: normal inspection of chest Gastrointestinal (Abdomen): normal bowel sounds, soft, nontender, no hepatosplenomegaly Musculoskeletal: Extremities: no cyanosis and no clubbing Skin: no rashes, warm and dry Neurologic: moves all extremities and awake; no focal motor deficits Psychiatric: A+Ox3, euthymic affect Lymphatic: no lymphedema Results & Data ([facility]) Vital Signs (Past 12 Hours) Vital Signs Temp Pulse Resp BP Pulse Ox 10/11/19 18:57 36.6 C 92 H 20 176/75 H 92 10/11/19 15:39 36.6 C 76 18 162/89 H 91 10/11/19 14:01 93 10/11/19 11:54 36.3 C L 81 18 148/95 H 92 Laboratory Results 10/11/19 10/11/19 10/11/19 Range/Units 21:38 20:19 16:57 WBC (4.8-10.8) K/uL RBC (4.7-6.1) M/uL Hgb (14.0-18.0) g/dL Hct (42-52) % MCV (80-100) fL MCH (25-34) pg MCHC (32-36) g/dL RDW Std Deviation (36.4-46.3) fL RDW Coeff of Susi (11.5-14.5) % Plt Count (130-400) K/uL MPV (7.4-10.4) fL APTT 52.7 H* (21.0-31.0) Seconds PTT Ratio 1.9 Sodium (136-145) mmol/L Potassium (3.5-5.1) mmol/L Chloride (98-107) mmol/L Carbon Dioxide (21-32) mmol/L Anion Gap (3-11) BUN (7-18) mg/dl Creatinine (0.6-1.4) mg/dl Est Cr Clr Drug Dosing ml/min Est GFR ( Amer) Est GFR (Non-Af Amer) BUN/Creatinine Ratio (10-20) Glucose (70-99) mg/dl POC Glucose 257 H 256 H (70-99) mg/dl Estimat Average Glucose mg/dl Hemoglobin A1c (4.5-5.6) % Calcium (8.5-10.1) mg/dl Phosphorus (2.5-4.9) mg/dl Total Bilirubin (0.2-1) mg/dl AST (15-37) U/L ALT (12-78) U/L Alkaline Phosphatase (45-117) U/L Troponin I (0-0.045) ng/ml NT-Pro-B Natriuret Pep (0-900) pg/ml Total Protein (6.4-8.2) gm/dl Albumin (3.4-5.0) gm/dl Globulin (2.5-4.0) gm/dl Albumin/Globulin Ratio (0.9-2) Triglycerides (0-150) mg/dl Cholesterol (0-200) mg/dl LDL Cholesterol, Calc mg/dl VLDL Cholesterol, Calc mg/dl HDL Cholesterol mg/dl Cholesterol/HDL Ratio 10/11/19 10/11/19 10/11/19 Range/Units 03:56 03:56 03:56 WBC 9.64 (4.8-10.8) K/uL RBC 5.04 (4.7-6.1) M/uL Hgb 15.0 (14.0-18.0) g/dL Hct 44.5 (42-52) % MCV 88.3 (80-100) fL MCH 29.8 (25-34) pg MCHC 33.7 (32-36) g/dL RDW Std Deviation 43.6 (36.4-46.3) fL RDW Coeff of Susi 13.5 (11.5-14.5) % Plt Count 230 (130-400) K/uL MPV 9.4 (7.4-10.4) fL APTT (21.0-31.0) Seconds PTT Ratio Sodium 139 (136-145) mmol/L Potassium 3.7 (3.5-5.1) mmol/L Chloride 107 (98-107) mmol/L Carbon Dioxide 26 (21-32) mmol/L Anion Gap 6.0 (3-11) BUN 17 (7-18) mg/dl Creatinine 1.13 (0.6-1.4) mg/dl Est Cr Clr Drug Dosing 94.6 ml/min Est GFR ( Amer) 78.6 Est GFR (Non-Af Amer) 67.8 BUN/Creatinine Ratio 15.4 (10-20) Glucose 141 H (70-99) mg/dl POC Glucose (70-99) mg/dl Estimat Average Glucose 146 mg/dl Hemoglobin A1c 6.7 H (4.5-5.6) % Calcium 8.4 L (8.5-10.1) mg/dl Phosphorus 3.1 D (2.5-4.9) mg/dl Total Bilirubin 0.8 (0.2-1) mg/dl AST 34 (15-37) U/L ALT 75 (12-78) U/L Alkaline Phosphatase 65 (45-117) U/L Troponin I 0.054 H* (0-0.045) ng/ml NT-Pro-B Natriuret Pep 1528 H (0-900) pg/ml Total Protein 6.9 (6.4-8.2) gm/dl Albumin 3.5 (3.4-5.0) gm/dl Globulin 3.4 (2.5-4.0) gm/dl Albumin/Globulin Ratio 1.0 (0.9-2) Triglycerides 223 H (0-150) mg/dl Cholesterol 163 (0-200) mg/dl LDL Cholesterol, Calc 89 mg/dl VLDL Cholesterol, Calc 45 mg/dl HDL Cholesterol 29 mg/dl Cholesterol/HDL Ratio 6 PG Care Time/CCT Total # of Minutes Spent Total Time Spent with Patient: Total time spent is greater than 50% in coordination of care (as documented) at patient's floor/unit and/or counseling patient: Coding Level of Care Code 32816 Subseq Hosp Care Lvl 3 Diagnoses Pulmonary emboli I26.94 Pulmonary embolism type: multiple subsegmental (without acute cor pulmonale) JOHN (dyspnea on exertion) R06.09 Elevated troponin R79.89 Diabetes mellitus E11.9 MATHEW on CPAP G47.33; Z99.89 Hypophosphatemia E83.39 BPH loc w urin obs/LUTS N40.1 Lower back pain M54.5 Morbid obesity E66.01 DVT prophylaxis Z29.9 (1) Pulmonary emboli Pulmonary embolism type: multiple subsegmental (without acute cor pulmonale) Qualified Code(s): I26.94 - Multiple subsegmental pulmonary emboli without acute cor pulmonale
[2019-10-11] MEDS: TAMSULOSIN HCL 0.4 MG CAP PO SCH (20:34)
[2019-10-11 22:10] LABS: Partial Thromboplastin Ratio 1.9
[2019-10-11 22:11] LABS: Partial Thromboplastin Time 52.7 Seconds (21.0-31.0)
[2019-10-12] MEDS: AVODART-ORDER AWAITING ACTION SCH ×2 (01:07→07:34)
[2019-10-12] MEDS: HEPARIN SODIUM/DEXTROSE 25,000 UNITS/500 ML BAG IV SCH (04:51)
[2019-10-12 06:27] LABS: Hematocrit (blood only) 45.5 % (42-52); Hemoglobin 15.8 g/dL (14.0-18.0); Mean Corpuscular Hemoglobin 30.4 pg (25-34); Mean Corpuscular Hgb Conc 34.7 g/dL (32-36); Mean Corpuscular Volume 87.5 fL (80-100); Mean Platelet Volume 9.6 fL (7.4-10.4); Platelet Count 287 K/uL (130-400); RDW Coefficient of Variation 13.4 % (11.5-14.5); RDW Standard Deviation 42.6 fL (36.4-46.3); White Blood Count 14.51 K/uL (4.8-10.8)
--- NOTE | 2019-10-12 06:29 | Ultrasound Report ---
ULTRASOUND BILATERAL LOWER EXTREMITY VENOUS CLINICAL HISTORY: Pulmonary embolus. COMPARISON STUDY: No priors. TECHNIQUE: Real-time, grayscale, and color Doppler sonography of the deep veins of the right and left lower extremity was performed from the inguinal crease to the calf. Compression and augmentation wer e utilized. FINDINGS: There is no sonographic evidence of deep venous thrombosis identified in the right or left lower extremity. The common femoral, superficial femoral, and popliteal veins are patent and normally compressible bilaterally. The greater saphenous vein and the profunda femoris vein at the junction w ith the common femoral vein are clear in both legs. The visualized calf veins are patent bilaterally. IMPRESSION: There is no sonographic evidence of deep venous thrombosis identified in the right or lef t lower extremity. ACT 112: Negative or not required by law. Electronically signed by: William Wallace M.D. 10/12/2019 6:28 AM
[2019-10-12 06:57] LABS: Partial Thromboplastin Ratio 1.8
[2019-10-12 06:59] LABS: Partial Thromboplastin Time 49.5 Seconds (21.0-31.0)
[2019-10-12 07:04] LABS: Albumin Level 3.5 gm/dl (3.4-5.0); Creatinine Clr Calc Pharmacy 83.1 ml/min; Est GFR (African American) 69.6; Potassium 3.8 mmol/L (3.5-5.1)
[2019-10-12 07:07] LABS: Albumin Globulin Ratio 0.9 (0.9-2); Bilirubin,Total 0.5 mg/dl (0.2-1); Globulin 3.7 gm/dl (2.5-4.0); Total Protein 7.2 gm/dl (6.4-8.2)
[2019-10-12] MEDS: INSULIN ASPART 100 UNITS/ML 3 ML PEN SC SCH ×2 (08:13→12:12)
[2019-10-12] MEDS ORDERED: RIVAROXABAN 15 MG TAB PO SCH (11:15)
--- NOTE | 2019-10-12 11:47 | Discharge Summary ---
Date of Service October 12, 2019 Admission HPI Per Admitting Provider This is a 63 yo M with PMHx of morbid obesity with BMI of 44, hypophosphatemia, MATHEW on CPAP, BPH who presents with dyspnea on exertion x1 week and presents with elevated troponin of 0.065 as well as EKG changes involving T wave inversion the inferior leads. Patient notes that his JOHN began approximately 1 week ago and has slightly progressed since. He notes the largest difference is ability to climb a flight of stairs requires significant amount of energy. He denies any chest pain or pressure. Patient denies any numbness or tingling into the arms or up into the jaw. He reports that he has been struggling with low back pain and has been following with PT as outpatient recently, he has been using cyclobenzaprine 10 mg for back spasm intermittently. He denies any history of tobacco products or smoking, occasional alcohol use. He has never had any cardiac events in his past, nor is on any type of cardiac medication. He does not exercise routinely. The patient mentions that he had a URI about 1 month ago where he required 5-day course of azithromycin, nebulizers, albuterol inhaler, and [id number] medication. He did use his albuterol inhaler this week with the shortness of breath he experienced on exertion however did not help with symptoms. Principal Diagnosis Acute pulmonary emboli Discharge Exam Constitutional WD/WN, vitals as above + obese Eyes + anicteric sclerae Neck trachea midline, no thyromegaly Respiratory normal respiratory effort, lungs clear to auscultation Cardiovascular Rate/Rhythm: regular rate and regular rhythm Extremities: + edema (bilat LEs with trace pitting edema to knees); no calf tenderness Chest (Breasts) Chest: normal inspection of chest Gastrointestinal (Abdomen) normal bowel sounds, soft, nontender, no hepatosplenomegaly Musculoskeletal Extremities: no cyanosis and no clubbing Skin no rashes, warm and dry Neurologic moves all extremities and awake; no focal motor deficits Psychiatric A+Ox3, euthymic affect Lymphatic no lymphedema Discharge Data Allergies Allergy/AdvReac Type Severity Reaction Status Date / Time Penicillins Allergy Intermediate HIVES Verified 10/10/19 14:15 Sulfa (Sulfonamide Allergy Intermediate "SWELLING" Verified 10/10/19 14:15 Antibiotics) Iodinated Contrast Media AdvReac Unknown GI UPSET Verified 10/10/19 14:15 Consultations 10/10/19 13:21 ED Decision to Admit Stat 10/10/19 15:50 Consult Cardiology Routine 10/11/19 13:40 Consult Case Management - Discharge Planning Routine Ordered Studies 10/11/19 12:30 CT angio chest PE protocol Stat 10/11/19 14:00 US venous doppler LE BI Routine CXR ECHO Hospital Course (1) Pulmonary emboli: Presented with 1 week of acute onset of SOB, dyspnea with minimal exertion after having left calf pain x 1 week before that. Had mildly positive troponin, nonspecific TW changes on ECG, mild respiratory insufficiency, tachypnea and tachycardia. Premedicated with IV Solu Medrol and Benadryl and then obtained CTA Chest which showed bilat PEs with some right heart strain. ECHO with mildly elevated RVSP 40-50 Hemodynamically stable Provoked by long car travel and morbid obesity with sedentary lifestyle; does have +FH of DVT in Mom; no recent surgery and is up to date on colon cancer screening, no other signs/symptoms of CA -started heparin gtt with bolus,then transitioned to po Xarelto after found to be cost affordable through outpatient pharmacy--> start Xarelto 15mg po bid x 21 days and then 20mg daily with dinner -would treat for 6 months with Xarelto -checked Venous Doppler bilat LEs given previous recent left calf pain and bilat edema--> negative for DVT -not requiring O2 at rest and was 93% with ambulation around the chaves prior to discharge, feeling much improved -stable for discharge to home with bleeding precautions given, also counseled to return if has worsening dyspnea, chest pains, calf or leg pain or swelling Follow up with PCP (2) JOHN (dyspnea on exertion): as above, secondary to PEs Now much improved prior to discharge Not requiring O2 (3) Elevated troponin: secondary to PE, mildly elevated and flat, NOT ACS no need for cardiac cath or stress ECHO w/o WMAs Appreciate Cardio consult (4) Diabetes mellitus: Noted to have hyperglycemia on arrival HgbA1C here is in diabetes range at 6.7% Seen by CDE and given counseling -after IV steroids, glucose in the 200s -treated with Novolog while here and will go out on metformin 500mg XR po bid to start tomorrow evening (after 48 hrs from contrast) -will need close outpt follow up with PCP (5) MATHEW on CPAP: -continue CPAP from home (6) Hypophosphatemia: - 1.9 at time of admission, replaced in ER and now resolved (7) BPH loc w urin obs/LUTS: - Continue Flomax -continue dutasteride (8) Lower back pain: -resolved Continue flexeril 10 mg PO BID prn pain and will dc diclofenac as will avoid NSAIDs and ASA while on anticoagulation - PT/OT here, already receiving PT as outpatient 2x/wk (9) Morbid obesity: - BMI of 44.3 - Diet and exercise were encouraged prior to discharge - ADA diet Should see manager talent acquisition after discharge for new diagnosis of DMII and Obesity (10) DVT prophylaxis: -heparin gtt and then converted to Xarelto CODE STATUS full code Disposition: Patient from home, stable for dc to home Total Time Total Time Spent Total Time Spent (In Minutes): 35 min Total Time Includes: Examination of the Patient, Discharge Planning and Medication Reconciliation Discharge Plan Discharge Items Patient Disposition: Home - Self-Care Reason For Visit: JOHN Discharge Diagnosis: Pulmonary embolism, Diabetes mellitus type II Condition on Discharge: Fair Activity: As commented below Bathing: No limitations Exercise/Sports: Gradually increase as tolerated Weightbearing: Full weightbearing Non-emergency contact: Primary Care Provider Call non-emergency contact if: you have any medication questions, your symptoms worsen, your pain is not controlled, your pain is worsening, your pain is unusual for you, your pain is concerning for you, you have a fever and your temperature is above 101 Follow-up/Referrals: Farooq Kapadia MD [Primary Care Provider] - (Please follow up with Dr. Kapadia within 1 week.) Diet: Carb Consistent or DM2 Addtl Attending Provider Instructions: You were admitted with shortness of breath and found to have blood clots in your lungs called Pulmonary emboli. You most likely had a blood clot in the leg (DVT) that traveled to your lung last week. This will require treatment with a blood thinner called Xarelto for 6 months. You should NOT take any other blood thinners while taking Xarelto such as aspirin, NSAIDs (advil, ibuprofen, motrin, Aleve, naproxen, diclofenac, etc.). Please take the Xarelto WITH FOOD 15mg twice a day x 21 days and then go to taking 20mg once daily WITH DINNER. You were also found to have a new diagnosis of diabetes mellitus (high blood sugars). You will be started on a new medication for this called metformin 500mg twice a day. You should see a manager talent acquisition to discuss a diabetic diet and work on weight loss. Please wait to start the metformin until the evening of 10/13/19. Follow up with your PCP within 1 week. Medication Instructions: Your condition is typically treated with an anticoagulant. Anticoagulants will thin your blood to help prevent new clots. * You should take her medication exactly as directed. * Never skip a dose. * Never take a double dose. If you miss a dose, take it as soon as you remember. Call your Primary Care doctor if you experience any of the following: * Swelling or Pain in your leg * Sudden, continuous pain deep in a muscle * Pain that worsens when you are active or when you stand still for a long time * Chest Pain * Sudden Shortness of Breath * Rapid or pounding heart beat * Fainting * Dizziness * Cough with blood or bloody sputum * Sweating more than normal * Bruises * Heavy or uncontrolled bleeding * Blood in your urine, stool or vomit * Black or tarry stools Caring for Your Self at Home: * Avoid sitting, standing or lying down for long periods without moving your legs and feet * When traveling by car, stop to get out and move around at least once every 1 hour * On long airplane, train or bus rides, get up and move around when possible * If you can't get up, wiggle your toes and tighten your calves to keep your blood moving Follow Up: It is important for you to keep your follow up appointments with your medical provider. Pending Studies at Discharge: No Stand-Alone Forms: [facility] Medications and DC Order Prescriptions: New acetaminophen [Mapap (acetaminophen)] 325 mg Tablet 650 mg PO Q4H PRN (Reason: pain) Qty: 30 RF: 0 Xarelto 15 mg (42)- 20 mg (9) tablets,dose pack 1 ea PO UD Qty: 51 RF: 0 metformin 500 mg tablet extended release 24 hr 500 mg PO BID Qty: 60 RF: 0 Continued cyclobenzaprine 10 mg tablet 10 mg PO BID PRN (Reason: Pain) RF: 0 tamsulosin 0.4 mg capsule 0.4 mg PO QPM RF: 0 dutasteride [Avodart] 0.5 mg capsule 0.5 mg PO QPM RF: 0 Discontinued diclofenac sodium 75 mg tablet,delayed release (DR/EC) 75 mg PO BID PRN (Reason: Pain) RF: 0 Discharge Orders: Discharge Order (Routine); Ordered 10/12/19 Ordered By: Geovanna Tello/Other Patient Handouts: Diabetes Healthy Meals, Diabetes Meal Planning, A1C Admission Data Admit Date/Time: 10/11/19 16:23 Attending Provider: Geovanna Esteban Admit Provider: Geovanna Esteban Primary Care Provider: Farooq Kapadia Other Providers: Charity Dao ; Mamadou Maynard Coding Level of Care Code D/C Day Management >30 mins Diagnoses Pulmonary emboli I26.94 Pulmonary embolism type: multiple subsegmental (without acute cor pulmonale) JOHN (dyspnea on exertion) R06.09 Elevated troponin R79.89 Diabetes mellitus E11.9 MATHEW on CPAP G47.33; Z99.89 Hypophosphatemia E83.39 BPH loc w urin obs/LUTS N40.1 Lower back pain M54.5 Morbid obesity E66.01 DVT prophylaxis Z29.9
== END 2019-10-12 13:08 | disposition home or self-care (01) | DRG 176 ==
LOC: ED 12:04 → 2S 12:04 → SUATTDRO 14:07 → 2S 15:03